=== PATIENT | female | born 1980 | race Caucasian/White ===

== ENCOUNTER 2018-07-21 09:33 | Emergency (ER) | payer OTHER ==
[~2018-07-21] VITALS: Ht 162.6 cm; Wt 89.4 kg
--- NOTE | 2018-07-21 10:35 | NUR ---
PATIENT PRESENTS TO ED TODAY FOR CP STARTING THIS AM AT 0830, REPORTS BLOOD IN STOOL LAST . DENIES RECENT TRAVEL/SOB/RECENT ILLNESS. + CONTROL, HX OF ASTHMA. MD AT BEDSIDE, WILL CALL CLERK IN PLACE, AWAITING MD ORDERS AT THIS TIME, CALL LIGHT WITHIN REACH. Addendum: 07/21/18 at 1040 by KALLIE CORRECTION: PATIENT REPORTS SOB, BREATH SOUNDS CLEAR.
[2018-07-21] MEDS ORDERED: CETI10TA24 PO (10:41)
[2018-07-21] MEDS ORDERED: BIRTH CONTROL (10:41)
--- NOTE | 2018-07-21 11:35 | NUR ---
LAB AT BEDSIDE.
--- NOTE | 2018-07-21 11:44 | NUR ---
VS UPDATED IN PATIENT CHART, PATIENT/FRIEND UPDATED ON POC. AWAITING LAB RESULTS.
[2018-07-21 12:01] LABS: ALBUMIN 3.6 g/dL (3.4-5.0); ANION GAP 7 mmol/L (5-15); BASOPHILS # (AUTO) 0.03 x10^3/uL (0-0.1); BASOPHILS % (AUTO) 1 % (0-1); CALCIUM 8.9 mg/dL (8.5-10.1); CHLORIDE 108 mmol/L (98-107); CREATININE 0.65 mg/dL (0.55-1.02); EOSINOPHILS # (AUTO) 0.03 x10^3/uL (0-0.4); EOSINOPHILS % (AUTO) 1 % (1-7); LYMPHOCYTES # (AUTO) 1.84 x10^3/uL (1-3.4); LYMPHOCYTES % (AUTO) 28 % (22-44); MD NO; MEAN CORPUSCULAR HEMOGLOBIN 31.9 pg (27.0-34.8); MEAN CORPUSCULAR HGB CONC 34.5 g/dL (32.4-35.8); MEAN CORPUSCULAR VOLUME 92.5 fL (80-100); MEAN PLATELET VOLUME 7.7 fL (7.4-10.4); MONOCYTES % (AUTO) 8 % (2-9); NEUTROPHILS # (AUTO) 4.09 x10^3/uL (1.8-6.8); NEUTROPHILS % (AUTO) 63 % (42-75); PLATELET COUNT 194 x10^3/uL (130-400); RED BLOOD COUNT 4.32 x10^6/uL (3.82-5.3); RED CELL DISTRIBUTION WIDTH 12.6 % (9.6-15.2)
[2018-07-21 12:05] LABS: TROPONIN I < 0.015 ng/mL (0.000-0.045)
--- NOTE | 2018-07-21 12:49 | NUR ---
PATIENT REFUSING IV FOR CTA, REQUESTING TO SPEAK TO . DR AYALA AT BEDSIDE.
--- NOTE | 2018-07-21 12:59 | NUR ---
PATIENT AGREES TO IV AND CTA, IV 20G RT AC. CT NOTIFIED, AWAITING CT.
--- NOTE | 2018-07-21 13:02 | NUR ---
PATIENT TO CT VIA Krist[id number].
[2018-07-21] MEDS ORDERED: OMNIPAQUE 350 MG/ML, 100ML BOTTLE ONE (13:22)
[2018-07-21 13:23] VITALS: BP 159/93
--- NOTE | 2018-07-21 14:09 | NUR ---
Patient/Caregiver given discharge instructions and they have confirmed that they understand the instructions. Patient ambulatory with steady gait.
== END 2018-07-21 14:11 | disposition home or self-care (01) ==
LOC: ED 14:05
DX: R07.89 Other chest pain (principal)
CPT/HCPCS: 36415; 71046; 71275; 80048; 82040; 84484; 84703; 85025; 85379; 93005; 99284; Q9967